=== PATIENT | female | born 1930 | race Caucasian/White ===

== ENCOUNTER 2016-12-11 14:58 | Outpatient (CLI) | payer OTHER | END 2016-12-11 15:00 | LOC: LAB 14:58 | PROVIDERS: ATTEND Family Medicine | DX: Z79.01 Long term (current) use of anticoagulants (principal) | CPT/HCPCS: 36415; 85610 ==

== ENCOUNTER 2016-12-28 11:13 | Outpatient (CLI) | payer OTHER | END 2016-12-28 11:14 | LOC: LAB 11:13 | PROVIDERS: ATTEND Family Medicine | DX: Z51.81 Encounter for therapeutic drug level monitoring (principal) | CPT/HCPCS: 85610 ==

== ENCOUNTER 2017-01-28 14:22 | Outpatient (CLI) | payer OTHER ==
[2017-01-28 15:29] LABS: eGFR (African) > 60; eGFR (Non-African) 41
== END 2017-01-28 14:23 ==
LOC: LAB 14:22
PROVIDERS: ATTEND Family Medicine
DX: E11.9 Type 2 diabetes mellitus without complications (principal)
CPT/HCPCS: 36415; 80053; 80061; 83036

== ENCOUNTER 2017-03-18 15:58 | Outpatient (CLI) | payer OTHER | END 2017-03-18 16:00 | LOC: LAB 15:58 | PROVIDERS: ATTEND Family Medicine | DX: Z51.81 Encounter for therapeutic drug level monitoring (principal) | CPT/HCPCS: 36415; 85610 ==

== ENCOUNTER 2017-04-02 13:39 | Outpatient (CLI) | payer OTHER ==
[2017-04-03 10:28] VITALS: BP 115/88
== END 2017-04-02 13:40 ==
LOC: LAB 13:39
PROVIDERS: ATTEND Family Medicine
DX: Z51.81 Encounter for therapeutic drug level monitoring (principal)
CPT/HCPCS: 36415; 85610

== ENCOUNTER 2017-04-03 10:10 | Emergency (ER) | payer OTHER ==
[2017-04-03 10:28] VITALS: BP 115/88
--- NOTE | 2017-04-03 11:09 | ED Physician Documentation ---
General Adult - HISTORIAN Historian: spouse - HPI Stated Complaint: Head Lac Chief Complaint: Laceration/Recheck/Suture Onset: hours (5) Timing: still present Severity: moderate Last known Well Date: 04/03/17 Last Known Well Time: 05:00 - ROS CONST: no problems EYES/ENT: none CVS/RESP: none GI/: none MS/SKIN/LYMPH: none NEURO/PSYCH: other (dementia) - PAST HX Past History: A-Fib Other History: other (Dementia) Surgeries/Procedures: other (porcine valve placement) Allergies/Adverse Reactions: Allergies Allergy/AdvReac Type Severity Reaction Status Date / Time No Known Drug Allergies Allergy Verified 04/03/17 10:22 - SOCIAL HX Smoking History: non-smoker - FAMILY HX Family History: Yes - VITAL SIGNS Vital Signs: Vital Signs Temp Pulse Resp BP Pulse Ox 97.2 F L 67 19 115/88 93 04/03/17 10:12 04/03/17 10:12 04/03/17 10:12 04/03/17 10:12 04/03/17 10:12 - REVIEWED ASSESSMENTS Nursing Assessment Reviewed: Yes Vitals Reviewed: Yes Procedures Wound Location: head Wound's Depth, Shape: superficial, linear Wound Explored: no foreign body removed Betadine Prep?: Yes Anesthesia: Lidocaine w/ Epi Wound Debrided: minimal Wound Repaired With: sutures Suture Size/Type: 5:0, nylon Number of Sutures: 8 Layer Closure?: No Sterile Dressing Applied?: Yes General Adult Physical Exam - PHYSICAL EXAM GENERAL APPEARANCE: mild distress EENT: eye inspection normal, other (curvilinear laceration of the left forehead is noted with concavity to the patient's right and a cental linear laceration radiation from the central convexity) RESPIRATORY: no resp distress CVS: irregularly irregular rhy, other (click) ABDOMEN: soft, no organomegaly RECTAL: other BACK: normal inspection SKIN: other (laceration as above) EXTREMITIES: non-tender NEURO: disoriented Discharge Clincal Impression: Forehead laceration Referrals: Keri Sosa MD [Primary Care Provider] - 2 Days Disposition: 01 HOME, SELF-CARE Decision to Admit: NO Decision Time: 11:15
[2017-04-03] MEDS: LIDOCAINE 1%/EPINEPHRINE 20ML VIAL IJ ONE (11:20)
== END 2017-04-03 11:20 | disposition home or self-care (01) ==
LOC: ED 10:10
DX: S01.81XA Laceration without foreign body of other part of head, initial encounter (principal); W19.XXXA Unspecified fall, initial encounter; Y93.9 Activity, unspecified; Y92.9 Unspecified place or not applicable
CPT/HCPCS: 12002; 99283

== ENCOUNTER 2017-04-15 09:38 | Outpatient (CLI) | payer OTHER ==
[2017-04-15 11:09] LABS: eGFR (African) > 60; eGFR (Non-African) 41
--- NOTE | 2017-04-15 12:54 | Diagnostic Imaging Report ---
ARGELIA CHAIREZ [facility] [address] [facility] [address] [place] [address]. [id number] Report Submission Date: Apr 15, 2017 12:38:14 PM NET SOFTWARE ENGINEER Patient Study Name: MICHAELLE NOEL Date: Apr 15, 2017 11:26:14 AM NET SOFTWARE ENGINEER Modality Type: CT\SR Gender: F Description: CT ABD & PELVIS W/ CON : 34 Institution: [facility] Physician: ARGELIA CHAIREZ Examination: CT Abdomen/pelvis History: Generalized abdominal discomfort Comparison exams: None available Technique: CT Abdomen/pelvis with IV protocol. Findings: Liver demonstrates diffuse low attenuation. No central lesion. Spleen , adrenals, pancreas, kidneys and gallbladder are without gross irregularity. No abnormal enhancement. No gallstone. Renal cortical atrophy/scarring. No suspicious calcifications. Ureters are nondilated in their course through the abdomen and pelvis. No central calcification. Pelvic phleboliths. Bladder margin within normal limits. Abdominal aorta demonstrates tortuosity and peripheral atherosclerotic disease. No aneurysm. Cardiac silhouette upper limits normal. Bowel unopacified limiting evaluation. No abnormal dilation. Stool within the large bowel limiting sensitivity. No mesenteric inflammatory changes or free fluid. Appendix not visualized. Sigmoid diverticula. No adjacent inflammation. Large hiatal hernia - portions of the stomach extend into the hernia. Osseous structures demonstrates curvature and degenerative changes. Lung bases with parenchymal scarring. Mild lingular haziness. No effusion. Impression: No abdominal mass or acute inflammatory process. Moderate large bowel stool. No obstruction. Sigmoid diverticulosis. No evidence for acute diverticulitis. Large hiatal hernia - portion of the stomach extends into the hernia. No gallstone. Renal cortical atrophy. No cortical calcification or abnormal ureteric dilation. Lung base scarring and possible mild lingular infiltrate. No effusion. Electronically signed on Apr 15, 2017 12:38:14 PM NET SOFTWARE ENGINEER by: Tano DAVIS
== END 2017-04-15 09:40 ==
LOC: RAD 09:38
PROVIDERS: ATTEND Internal Medicine Cardiovascular Disease
DX: I10 Essential (primary) hypertension (principal); I71.4 Abdominal aortic aneurysm, without rupture
CPT/HCPCS: 74177; 82565; Q9967

== ENCOUNTER 2017-05-01 14:19 | Outpatient (CLI) | payer OTHER | END 2017-05-01 14:20 | LOC: LAB 14:19 | PROVIDERS: ATTEND Family Medicine | DX: Z51.81 Encounter for therapeutic drug level monitoring (principal) | CPT/HCPCS: 36415; 85610 ==

== ENCOUNTER 2017-05-08 15:32 | Outpatient (CLI) | payer OTHER | END 2017-05-08 15:33 | LOC: LAB 15:32 | PROVIDERS: ATTEND Family Medicine | DX: Z51.81 Encounter for therapeutic drug level monitoring (principal) | CPT/HCPCS: 36415; 85610 ==

== ENCOUNTER 2017-05-15 10:43 | Outpatient (CLI) | payer OTHER | END 2017-05-15 10:44 | LOC: LAB 10:43 | PROVIDERS: ATTEND Family Medicine | DX: Z51.81 Encounter for therapeutic drug level monitoring (principal) | CPT/HCPCS: 36415; 85610 ==

== ENCOUNTER 2017-05-22 15:03 | Outpatient (CLI) | payer OTHER | END 2017-05-22 15:04 | LOC: LAB 15:03 | PROVIDERS: ATTEND Family Medicine | DX: Z51.81 Encounter for therapeutic drug level monitoring (principal) | CPT/HCPCS: 36415; 85610 ==

== ENCOUNTER 2017-05-28 15:30 | Outpatient (CLI) | payer OTHER | END 2017-05-28 15:32 | LOC: LAB 15:30 | PROVIDERS: ATTEND Family Medicine | DX: Z51.81 Encounter for therapeutic drug level monitoring (principal) | CPT/HCPCS: 36415; 85610 ==

== ENCOUNTER 2017-06-09 15:27 | Outpatient (CLI) | payer OTHER | END 2017-06-09 15:30 | LOC: LAB 15:27 | PROVIDERS: ATTEND Family Medicine | DX: Z79.899 Other long term (current) drug therapy (principal) | CPT/HCPCS: 36415; 85610 ==

== ENCOUNTER 2017-06-23 10:55 | Outpatient (CLI) | payer OTHER | END 2017-06-23 13:28 | LOC: LAB 10:55 | PROVIDERS: ATTEND Family Medicine | DX: Z51.81 Encounter for therapeutic drug level monitoring (principal) | CPT/HCPCS: 36415; 85610 ==

== ENCOUNTER 2017-07-07 15:23 | Outpatient (CLI) | payer OTHER | END 2017-07-07 15:24 | LOC: LAB 15:23 | PROVIDERS: ATTEND Family Medicine | DX: Z51.81 Encounter for therapeutic drug level monitoring (principal) | CPT/HCPCS: 36415; 85610 ==

== ENCOUNTER 2017-08-07 12:25 | Outpatient (CLI) | payer OTHER | END 2017-08-07 12:26 | LOC: LAB 12:25 | PROVIDERS: ATTEND Family Medicine | DX: Z51.81 Encounter for therapeutic drug level monitoring (principal); E11.9 Type 2 diabetes mellitus without complications | CPT/HCPCS: 36415; 83036; 85610 ==

== ENCOUNTER 2017-11-14 09:59 | Inpatient (IN) | payer OTHER ==
--- NOTE | 2017-11-14 10:13 | ED Physician Documentation ---
General Adult - HISTORIAN Historian: patient, spouse - HPI Stated Complaint: possible dehydration Chief Complaint: Weakness Onset: days ago (5) Timing: still present Severity: moderate Further Comments: yes (she reports Friday she started to have nausea and she has had no vomiting. She denies a fever. She states she has a history of Afib. She has some diarrhea (she is not certain how much she has had today). No rash. No swelling. Dr Narvaez did call and state she needs eval for possible admission with dehydration.) Last known Well Code/Unknown Code: Unknown - ROS CONST: recent illness EYES/ENT: nasal drainage, nasal congestion CVS/RESP: denies: chest pain, shortness of breath, cough GI/: nausea, diarrhea. denies: abdominal pain, problems urinating, vomiting MS/SKIN/LYMPH: denies: rash NEURO/PSYCH: denies: headache, dizziness - PAST HX Past History: A-Fib Immunizations: UTD Allergies/Adverse Reactions: Allergies Allergy/AdvReac Type Severity Reaction Status Date / Time No Known Drug Allergies Allergy Verified 11/14/17 10:32 - SOCIAL HX Smoking History: non-smoker Alcohol Use: none Drug Use: none - FAMILY HX Family History: No - VITAL SIGNS Vital Signs: Vital Signs Temp Pulse Resp BP Pulse Ox 115/88 04/03/17 11:20 - REVIEWED ASSESSMENTS Nursing Assessment Reviewed: Yes Vitals Reviewed: Yes Progress - Progress Progress: 1145: call into Dr Narvaez for possible admission. Pt resting quietly DG ED Results Lab/Radiology - Radiology Radiology Impressions: Examination: Portable chest History: Evaluate lungs. PCXR, FATIGUE, SOA WORSE TODAY THAN USUAL (Hx) Comparison exam: None provided. Findings: Single view of the chest demonstrates a prominent cardiac and mediastinal silhouette. Sternotomy wires. Lung burrows without focal infiltrate. No blunting of the costophrenic margins. Possible hiatal hernia. Acromioclavicular joint degenerative changes. Impression: Cardiomegaly. No gross pulmonary consolidation/effusion. Electronically signed on Nov 14, 2017 11:06:51 AM CDT by: Tano Tubbs General Adult Physical Exam - PHYSICAL EXAM GENERAL APPEARANCE: no distress EENT: eye inspection normal, ENT inspection normal, other (signs of dehydration ) NECK: normal inspection RESPIRATORY: no resp distress, chest non-tender, breath sounds normal CVS: irregularly irregular rhy ABDOMEN: soft, normal bowel sounds, no distension, non-tender BACK: normal inspection, no CVA tenderness SKIN: warm/dry, normal color EXTREMITIES: non-tender, normal range of motion, no evidence of injury, no edema NEURO: oriented X3, CN's nml as tested, motor nml, sensation nml, mood/affect nml, cognition normal Discharge Clincal Impression: Dehydration UTI (urinary tract infection) Qualifiers: Urinary tract infection type: site unspecified Hematuria presence: without hematuria Qualified Code(s): N39.0 - Urinary tract infection, site not specified A-fib Qualifiers: Atrial fibrillation type: chronic Qualified Code(s): I48.2 - Chronic atrial fibrillation Comments: 1245: Discussed with DR Narvaez will admit in DG Disposition: 09 ADMITTED INPATIENT Decision to Admit: [id number] Date of Decison to Admit: 11/14/17 Decision Time: 12:45
[2017-11-14] MEDS ORDERED: 0.9 % SODIUM CHLORIDE 1,000 ML IV SCH (10:30)
[2017-11-14] MEDS ORDERED: ONDANSETRON HCL/PF 4 MG/ 2ML VIAL IVP ONE ×2 (10:32→17:59)
[2017-11-14 10:37] LABS: BASOPHILS % 0.7 (0.0-1.5); EOSINOPHILS % 4.9 % (0.0-6.8); MEAN CORPUSCULAR VOLUME 101.9 fl (80.0-100.0); NEUTROPHILS # 5.8 # k/uL (1.4-7.7)
[2017-11-14 10:53] LABS: eGFR (African) > 60; eGFR (Non-African) > 60
[2017-11-14 13:49] VITALS: BMI 42.0
[2017-11-14 15:15] LABS: APPEARANCE,URINE CLEAR (CLEAR); COLOR,URINE YELLOW (YELLOW); OCCULT BLOOD,URINE TRACE-INTACT (NEGATIVE); PH URINE 5.5 (5.0 - 8.0); UROBILINOGEN URINE 0.2 Eu (0.2-1.0)
[2017-11-14] MEDS ORDERED: LOSARTAN POTASSIUM 100 MG PO SCH (17:53)
[2017-11-14] MEDS ORDERED: VENLAFAXINE HCL 37.5 MG CAP.ER.24H PO SCH (17:53)
[2017-11-14] MEDS ORDERED: WARFARIN SODIUM 5 MG TABLET PO SCH (17:53)
[2017-11-14] MEDS ORDERED: VENLAFAXINE HCL 75 MG PO SCH (17:53)
[2017-11-14] MEDS ORDERED: WARFARIN SODIUM 2.5 MG TABLET PO SCH (18:00)
--- NOTE | 2017-11-14 18:03 | History and Physical Report ---
History of Present Illnes - History of Present Illness Reason for Visit: him History of Present Illness: Patient is and 87-year-old white female with vied a history of nausea. Patient stated she is vomited the time. Has not had any hematemesis. Last emesis was approximately 18 hours ago. Patient feels that she is getting dehydrated. Patient stated she is had increase urinary output and her mouth seemed to be drive. Patient denies any orthostatic symptoms at this time. Patient was seen in the office and transferred to the ED for further evaluation. In the ED it was noted that the patient BUN and creatinine were elevated. Patient was felt to have a urinary tract infection. Patient states she has been having some urinary urgency. Patient not sure if she is had any fever or chills. Patient was subsequently admitted to the hospital for further care and evaluation. - Past Medical History Cardiac: AFIB, HTN, Hyperlipidemia (Hope okay well I think we may have been on the), Aortic stenosis (overload overload), Other (thoracic aneurysm, aortic regurgitation, ) Pulmonary: Sleep Apnea, Other (allergic rhinitis) VASCULAR NEUROLOGIST: Dementia Psych: Depression Endocrine: Diabetes (type 2) - Past Surgical History Past Surgical History: Cholecystectomy, Cataract Removal, Hysterectomy, Other ( AV porcine valve, BSO) - Past Family History Mother Family History: (94yo advanced age) Father Family History: Cancer (colon) - Past Social History Smoke: No Occupation: retire Alcohol: None Drugs: None Lives: With Family Domestic Violence: Negative - Health Maintenance Health Maintenance: Influenza Vaccine, Pneumococcal Vaccine Influenza Vaccine: Current for this Influenza Season Pneumonia Vaccine: Yes Resuscitation Status: Resusciation Status Resuscitation Status Full Code - Unable to Obtain History Unable to Obtain: No Review of Systems - Review of Systems Constitutional: Chills, Weakness. negative: Fever Eyes: negative: pain, vision change ENT: negative: Ear Pain, Ear Discharge, Nose Pain, Nose Discharge, Nose Congestion, Mouth Pain, Throat Swelling Respiratory: negative: Cough, Shortness of Breath, Hemoptysis, SOB with Excertion, Pleuritic Pain, Wheezing Cardiovascular: Palpitations. negative: Chest Pain, Orthopnea, Paroxysmal Noc. Dyspnea, Edema, Light Headedness Gastrointestinal: Nausea, Vomiting, Abdominal Pain, Diarrhea. negative: Constipation, Melena, Hematochezia Genitourinary: negative: Dysuria, Frequency Musculoskeletal: Back Pain Skin: negative: Rash Neurological: Weakness. negative: Numbness, Incoordination, Change in Speech, Confusion, Seizures - Medications/Allergies Allergies/Adverse Reactions: Allergies Allergy/AdvReac Type Severity Reaction Status Date / Time No Known Drug Allergies Allergy Verified 11/14/17 10:32 Current Inpatient Medications: Current Inpatient Medications Cholecalciferol (Vitamin D-3) 2,000 unit PO DAILY [facility] Sodium Chloride (Normal Saline) 1,000 mls @ 100 mls/hr IV Q10H [facility] Ceftriaxone Sodium 1 gm/ (Sodium Chloride) 50 mls @ 100 mls/hr IV Q24H [facility] Losartan Potassium (Cozaar) 100 mg PO DAILY [facility] Ondansetron HCl (Zofran 4 Mg/2 Ml) 4 mg IVP NOW ONE Stop: 11/14/17 18:00 Pantoprazole Sodium (Protonix) 40 mg PO 0700 [facility] Pravastatin Sodium (Pravastatin Sodium) 10 mg PO HS [facility] Venlafaxine HCl (Effexor Xr) 112.5 mg PO DAILY [facility] Warfarin Sodium (Coumadin) 7.5 mg PO [id number] [facility] Exam - Exam Vital Signs: Vital Signs (72 hours) 11/14/17 11/14/17 12:54 13:00 Temperature 97.9 F Pulse Rate [ 91 H 104 H Pulse ox] Respiratory 16 17 Rate Blood Pressure 130/72 92/76 [Left Arm] O2 Sat by Pulse 97 94 Oximetry General: Alert, Oriented to Person, Oriented to Place, Oriented to Time, Cooperative, Mild distress HEENT: Atraumatic, PERRLA, EOMI, Mouth Mucous membr. moist/[place], Nose Mucous membr. moist/[place] Neck: Normal Range of Motion. No: Rigidity, Lymphadenopathy Carotids: wnl Thyroid: WNL Lungs: Clear to auscultation, Normal air movement, Speaks full Sentences Cardiovascular: Normal S1, Normal S2, Murmur, Irregularly Irregular, Atrial Fib , Other (click) Murmur: Systolic Murmur Heart Murmur Grade: II Abdomen: Normal bowel sounds, Soft, No hepatospenomegaly, No masses, Other ( tenderness ot the epigastric area) Integumentary: Normal, [place], Warm, Dry Extremities: No clubbing, No cyanosis, No edema, Normal pulses, No tenderness/ swelling Neurological: Normal speech, Strength Equal Bilat, Normal tone, Sensation intact , Cranial nerves 3-12 NL, Reflexes 2+. No: Normal gait (slightly ataxic) Psych/Mental Status: Mental status NL, Mood NL, Appropriate Affect, Intact Judgment - Laboratory Results Laboratory Results: Laboratory Results 11/14/17 11/14/17 11/14/17 12:45 Unknown Unknown PT 18.6 H INR 1.76 H NT-Pro-B Natriuret Pep 1659.5 H Urine Color Yellow Urine Appearance Clear Urine pH 5.5 Ur Specific [place] 1.025 Urine Protein Negative Urine Ketones Trace H Urine Occult Blood Trace-intact H Urine Nitrite Positive H Urine Bilirubin Negative Urine Urobilinogen 0.2 Ur Leukocyte Esterase 1+ H Urine Glucose Negative Assessment/Plan - Assessment/Plan (1) UTI (urinary tract infection) Status: Acute Current Visit: Yes Qualifiers: Urinary tract infection type: site unspecified Hematuria presence: without hematuria Qualified Code(s): N39.0 - Urinary tract infection, site not specified Assessment: Blood cultures have been started. Your culture has been obtained. Patient will be started on Rocephin 1 g IV Q 24 hours. Once patient is able to tolerated oral medications will transition to oral antibiotics. (2) Nausea & vomiting Status: Acute Current Visit: Yes Assessment: Patient will be placed on Zofran PRN for nausea. Patient will be started on the proton pump inhibitor for possible gastritis. (3) Diabetes type 2, controlled Status: Acute Current Visit: Yes Qualifiers: Diabetes mellitus penitentiary insulin use: with termite control service representative use Assessment: Patient will be continued on home insulin therapy. (4) A-fib Status: Chronic Current Visit: Yes Qualifiers: Atrial fibrillation type: chronic Qualified Code(s): I48.2 - Chronic atrial fibrillation Assessment: Will continue with anticoagulation therapy with Coumadin. Patient heart rate will be monitored. Patient does have a rapid ventricular response at this time. Patient will be started on metoprolol 25 mg BID to try to control the rate better. (5) Dehydration Status: Acute Current Visit: Yes Assessment: Patient will be started on normal saline with slow rehydration. Will continue to monitor patient kidney functions. VTE Assessment - RISK FACTOR SCORE VTE RISK FACTOR SCORES: AGE OVER 60 YEARS, ANTICIPATED BED CONFINEMENT OR IMMOBILIZATION > 24 HOURS - RISK VTE MODERATE RISK: SCORE OF 2 (RISK PROXIMAL DVT 2-4%) PROPHYAXIS NEEDED (on coumadin)
[2017-11-14] MEDS ORDERED: WARFARIN SODIUM 5 MG TABLET PO ONE (18:04)
[2017-11-14] MEDS: 0.9 % SODIUM CHLORIDE 1,000 ML IV SCH (18:09)
[2017-11-14] MEDS ORDERED: cefTRIAXone SODIUM 1 GM VIAL ONE (18:18)
[2017-11-14] MEDS: cefTRIAXone SODIUM 1 GM in 0.9 % SODIUM CHLORIDE 50 ML IV SCH (18:21)
[2017-11-14] MEDS ORDERED: PRAVASTATIN SODIUM 20 MG TABLET ONE (18:26)
[2017-11-14] MEDS: PANTOPRAZOLE SODIUM 40 MG TABLET PO SCH (18:30)
[2017-11-14] MEDS: PRAVASTATIN SODIUM 20 MG TABLET PO SCH ×2 (18:30→21:15)
--- NOTE | 2017-11-14 18:31 | Diagnostic Imaging Report ---
BRUCE SMITH [facility] [address] [facility] [address] [place], [place]. [address] Report Submission Date: Nov 14, 2017 11:06:51 AM CDT Patient Study Name: MICHAELLE NOEL Date: Nov 14, 2017 10:34:59 AM CDT Modality Type: DX Gender: F Description: CHEST : 32 Institution: [facility] Physician: BRUCE SMITH Examination: Portable chest History: Evaluate lungs. PCXR, FATIGUE, SOA WORSE TODAY THAN USUAL (Hx) Comparison exam: None provided. Findings: Single view of the chest demonstrates a prominent cardiac and mediastinal silhouette. Sternotomy wires. Lung burrows without focal infiltrate. No blunting of the costophrenic margins. Possible hiatal hernia. Acromioclavicular joint degenerative changes. Impression: Cardiomegaly. No gross pulmonary consolidation/effusion. Electronically signed on Nov 14, 2017 11:06:51 AM CDT by: Tano DAVIS
[2017-11-14] MEDS ORDERED: Non-Formulary 1 EACH (Ranitidine Hcl [Ranitidine Hcl] 150 MG) PO SCH (21:00)
[2017-11-14] MEDS: ZOLPIDEM TARTRATE 5 MG TABLET PO PRN (21:08)
[2017-11-14] MEDS: METOPROLOL TARTRATE 50 MG TABLET PO SCH (21:09)
[2017-11-14] MEDS: INSULIN NPH/REG 100 UNIT/ML 3ML VIAL SQ SCH (21:11)
[2017-11-15] MEDS: 0.9 % SODIUM CHLORIDE 1,000 ML IV SCH ×3 (05:59→14:54)
[2017-11-15] MEDS: PANTOPRAZOLE SODIUM 40 MG TABLET PO SCH (06:00)
[2017-11-15 07:10] LABS: BASOPHILS % 0.9 (0.0-1.5); EOSINOPHILS % 6.9 % (0.0-6.8); MEAN CORPUSCULAR HEMOGLOBIN 31.7 pg (28.0-34.0); MEAN CORPUSCULAR VOLUME 101.9 fl (80.0-100.0); NEUTROPHILS # 4.7 # k/uL (1.4-7.7)
[2017-11-15 07:25] LABS: eGFR (African) > 60; eGFR (Non-African) 41
[2017-11-15] MEDS ORDERED: PRAVASTATIN SODIUM 10 MG PO SCH (09:00)
[2017-11-15] MEDS: LOSARTAN POTASSIUM 50 MG TABLET PO SCH (09:18)
[2017-11-15] MEDS: INSULIN NPH/REG 100 UNIT/ML 3ML VIAL SQ SCH ×2 (09:18→20:22)
[2017-11-15] MEDS: CHOLECALCIFEROL (VIT D3) 1,000 UNIT TABLET PO SCH (09:18)
[2017-11-15] MEDS: VENLAFAXINE HCL 37.5 MG CAP.ER.24H PO SCH (09:18)
[2017-11-15] MEDS: METOPROLOL TARTRATE 50 MG TABLET PO SCH ×2 (09:18→20:20)
[2017-11-15] MEDS ORDERED: WARFARIN SODIUM 5 MG TABLET PO ONE (11:06)
[2017-11-15] MEDS ORDERED: PRAVASTATIN SODIUM 20 MG TABLET ONE (11:06)
--- NOTE | 2017-11-15 11:27 | Inpatient Progress Note ---
Subjective - Required Recertification Statement I anticipate X number of days because-include discharge plan: 1 - Review of Systems Subjective: Patient feeling a little better. No nausea or vomiting. HR this am has been in the 80's. Appetite better. Objective - Exam Vitals and I&O: Vital Signs Temp 97.4 F L 11/15/17 09:33 Pulse 76 11/15/17 09:33 Resp 22 11/15/17 09:33 BP 125/48 11/15/17 09:33 Pulse Ox 93 11/15/17 09:33 Intake & Output 11/14/17 11/14/17 11/15/17 11:59 23:59 11:59 Intake Total 1461 1560 Balance 1461 1560 Weight 97.522 kg 98.43 kg Intake: IV 521 1340 Right Antecubital 521 1340 Oral 940 220 Other: Voiding Method Incontinent Bedside Commode # Voids 1 3 General: Alert, Oriented to Person, Oriented to Place, Cooperative, No acute distress. No: Oriented to Time Lungs: Clear to auscultation, Normal air movement, Speaks full Sentences Cardiovascular: Regular rate - Results Results: Laboratory Results WBC 7.20 K/ul (4.00-12.00) 11/14/17 Unknown RBC 3.87 M/ul (3.90-5.20) L 11/14/17 Unknown Hgb 12.3 g/dL (12.0-16.0) 11/14/17 Unknown Hct 39.5 % (34.5-46.5) 11/14/17 Unknown MCV 101.9 fl (80.0-100.0) H 11/14/17 Unknown MCH 31.7 pg (28.0-34.0) 11/14/17 Unknown MCHC 31.1 g/dL (30.0-36.0) 11/14/17 Unknown RDW 13.6 % (11.3-14.3) 11/14/17 Unknown Plt Count 301 K/mm3 (130-400) 11/14/17 Unknown Neut % (Auto) 65.9 % (39.0-79.0) 11/14/17 Unknown Lymph % (Auto) 18.7 % (16.0-50.0) 11/14/17 Unknown Rains % (Auto) 6.0 % (0.0-11.0) 11/14/17 Unknown Eos % (Auto) 6.9 % (0.0-6.8) H 11/14/17 Unknown Baso % (Auto) 0.9 (0.0-1.5) 11/14/17 Unknown Neut # (Auto) 4.7 # k/uL (1.4-7.7) 11/14/17 Unknown Lymph # (Auto) 1.3 # k/uL (0.6-4.0) 11/14/17 Unknown Rains # (Auto) 0.4 # k/uL (0.0-0.9) 11/14/17 Unknown Eos # (Auto) 0.5 # k/uL (0.0-0.6) 11/14/17 Unknown Baso # (Auto) 0.1 # k/uL (0.0-0.5) 11/14/17 Unknown Reactive Lymphs % 1.5 % (0.0-5.0) 11/14/17 Unknown Reactive Lymphs # 0.1 # k/uL (0.0-0.8) 11/14/17 Unknown PT 18.5 Seconds (9.4-11.6) H 11/15/17 06:00 INR 1.75 (0.9-1.2) H 11/15/17 06:00 Sodium 143 mmol/L (136-145) 11/15/17 06:00 Potassium 4.5 mmol/L (3.5-5.1) 11/15/17 06:00 Chloride 110 mmol/L (98-107) H 11/15/17 06:00 Carbon Dioxide 26 mmol/L (22-30) 11/15/17 06:00 BUN 24 mg/dL (7-17) H 11/15/17 06:00 Creatinine 1.30 mg/dL (0.52-1.04) H 11/15/17 06:00 Estimated Creat Clear 57 11/15/17 06:00 Est GFR ( Amer) > 60 (60-) 11/15/17 06:00 Est GFR (Non-Af Amer) 41 (60-) L 11/15/17 06:00 Glucose 96 mg/dL (74-106) 11/15/17 06:00 Calcium 9.4 mg/dL (8.4-10.2) 11/15/17 06:00 Total Bilirubin 0.3 mg/dL (0.2-1.3) 11/15/17 06:00 AST 17 U/L (15-46) 11/15/17 06:00 ALT 22 U/L (13-69) 11/15/17 06:00 Alkaline Phosphatase 53 U/L (38-126) 11/15/17 06:00 NT-Pro-B Natriuret Pep 1659.5 pg/mL (15.0-450.0) H 11/14/17 Unknown Total Protein 6.6 g/dL (6.3-8.2) 11/15/17 06:00 Albumin 3.6 g/dL (3.5-5.0) 11/15/17 06:00 Urine Color Yellow (YELLOW) 11/14/17 12:45 Urine Appearance Clear (CLEAR) 11/14/17 12:45 Urine pH 5.5 (5.0 - 8.0) 11/14/17 12:45 Ur Specific [place] 1.025 (1.010-1.030) 11/14/17 12:45 Urine Protein Negative mg/dL (NEGATIVE) 11/14/17 12:45 Urine Ketones Trace mg/dL (NEGATIVE) H 11/14/17 12:45 Urine Occult Blood Trace-intact (NEGATIVE) H 11/14/17 12:45 Urine Nitrite Positive (NEGATIVE) H 11/14/17 12:45 Urine Bilirubin Negative (NEGATIVE) 11/14/17 12:45 Urine Urobilinogen 0.2 Eu (0.2-1.0) 11/14/17 12:45 Ur Leukocyte Esterase 1+ (NEGATIVE) H 11/14/17 12:45 Urine Glucose Negative mg/dL (NEGATIVE) 11/14/17 12:45 Assessment/Plan - Assessment/Plan (1) Diabetes type 2, controlled Status: Acute Current Visit: Yes Qualifiers: Diabetes mellitus keno terminal operator insulin use: with jail use Diabetes mellitus complication status: without complication Qualified Code(s): E11.9 - Type 2 diabetes mellitus without complications; Z79.4 - skilled nursing (current) use of insulin; Z79.4 - skilled nursing (current) use of insulin; Z79.4 - skilled nursing ( current) use of insulin; Z79.4 - keno terminal operator (current) use of insulin Plan: BS 104 and 108. reports never that low at home. Will cut insulin to the 18 units bid he gives at home. Watch. (2) Nausea & vomiting Status: Acute Current Visit: Yes Qualifiers: Vomiting type: unspecified Vomiting Intractability: non-intractable Qualified Code(s): R11.2 - Nausea with vomiting, unspecified Plan: Improved. Watch closely. IF tolerated po today will change po antibiotics. (3) UTI (urinary tract infection) Status: Acute Current Visit: Yes Qualifiers: Urinary tract infection type: site unspecified Hematuria presence: without hematuria Qualified Code(s): N39.0 - Urinary tract infection, site not specified Plan: Awaiting urine culture. Continue rocephin. Change to po when tolerating diet. Decrease IVF rate. (4) A-fib Status: Chronic Current Visit: Yes Qualifiers: Atrial fibrillation type: chronic Qualified Code(s): I48.2 - Chronic atrial fibrillation Plan: HR better controlled on metoprolol. BP stable. Continue to watch.
[2017-11-15] MEDS ORDERED: cefTRIAXone SODIUM 1 GM VIAL ONE (17:46)
[2017-11-15] MEDS: cefTRIAXone SODIUM 1 GM in 0.9 % SODIUM CHLORIDE 50 ML IV SCH (17:54)
[2017-11-15] MEDS ORDERED: WARFARIN SODIUM 2.5 MG TABLET PO SCH (18:00)
[2017-11-15] MEDS ORDERED: 0.9 % SODIUM CHLORIDE 1,000 ML IV ONE (19:24)
[2017-11-15] MEDS: PRAVASTATIN SODIUM 20 MG TABLET PO SCH (20:20)
[2017-11-16] MEDS: 0.9 % SODIUM CHLORIDE 1,000 ML IV SCH ×2 (00:04→08:58)
[2017-11-16] MEDS: PANTOPRAZOLE SODIUM 40 MG TABLET PO SCH (06:01)
[2017-11-16 07:12] LABS: MEAN CORPUSCULAR HEMOGLOBIN 32.3 pg (28.0-34.0); MEAN CORPUSCULAR VOLUME 99.9 fl (80.0-100.0)
[2017-11-16 07:28] LABS: eGFR (African) > 60; eGFR (Non-African) > 60
[2017-11-16] MEDS ORDERED: 0.9 % SODIUM CHLORIDE 1,000 ML IV ONE (08:31)
[2017-11-16] MEDS: LOSARTAN POTASSIUM 50 MG TABLET PO SCH (08:57)
[2017-11-16] MEDS: VENLAFAXINE HCL 37.5 MG CAP.ER.24H PO SCH (08:57)
[2017-11-16] MEDS: METOPROLOL TARTRATE 50 MG TABLET PO SCH ×2 (08:57→20:25)
[2017-11-16] MEDS: CHOLECALCIFEROL (VIT D3) 1,000 UNIT TABLET PO SCH (08:58)
[2017-11-16] MEDS: INSULIN NPH/REG 100 UNIT/ML 3ML VIAL SQ SCH ×2 (09:31→20:29)
[2017-11-16] MEDS ORDERED: PRAVASTATIN SODIUM 20 MG TABLET ONE (11:06)
[2017-11-16] MEDS ORDERED: cefTRIAXone SODIUM 1 GM VIAL ONE (11:07)
[2017-11-16] MEDS ORDERED: FUROSEMIDE 20 MG/2 ML VIAL IVP ONE (11:10)
[2017-11-16] MEDS: cefTRIAXone SODIUM 1 GM in 0.9 % SODIUM CHLORIDE 50 ML IV SCH (17:55)
[2017-11-16] MEDS: ZOLPIDEM TARTRATE 5 MG TABLET PO PRN (20:25)
[2017-11-16] MEDS: PRAVASTATIN SODIUM 20 MG TABLET PO SCH (20:26)
[2017-11-17] MEDS: PANTOPRAZOLE SODIUM 40 MG TABLET PO SCH (06:05)
--- NOTE | 2017-11-17 07:54 | Discharge Summary ---
Discharge Summary - Discharge Sumary History of Present Illness: Patient is and 87-year-old white female with vied a history of nausea. Patient stated she is vomited the time. Has not had any hematemesis. Last emesis was approximately 18 hours ago. Patient feels that she is getting dehydrated. Patient stated she is had increase urinary output and her mouth seemed to be drive. Patient denies any orthostatic symptoms at this time. Patient was seen in the office and transferred to the ED for further evaluation. In the ED it was noted that the patient BUN and creatinine were elevated. Patient was felt to have a urinary tract infection. Patient states she has been having some urinary urgency. Patient not sure if she is had any fever or chills. Patient was subsequently admitted to the hospital for further care and evaluation. Home Medications: Ambulatory Orders Medication Instructions Recorded Metoprolol Tartrate [Lopressor] 25 mg PO BID #60 tablet 11/17/17 Sulfamethoxazole/Trimethoprim 1 each PO BID #8 tab 11/17/17 [Bactrim Ds] Allergies/Adverse Reactions: Allergies Allergy/AdvReac Type Severity Reaction Status Date / Time No Known Drug Allergies Allergy Verified 11/14/17 10:32 Discharge Summary: Patient was admitted with UTI and treated with rocephin. She responded well to IVF and antibiotics. N/V resolved. Antibiotics were changed when urine culture came back. She will complete a 7 day course with bactrim. Will watch INR very closely. HR controlled with metoprolol tartrate 25 mg bid. BP stable. BS were around 100 so insulin decreased. AT home she had been in the 200 range - consistent with her feeding her whatever she wanted. It was noted she gained about 10 pounds while on IVF but did not feel she was SOB more than usual. She was given IV lasix, but did not notice a change in weight. I suspect she was at a very dry weight due to dehydration when she was admitted. She was able to ambulate in the zafar "as much as she does at home" per . He refused SNF evaluation. He also refused home health as they "have a date at the [facility]" and doesn't want to be homebound. He will watch her carefully - may need outpatient PT. He is to get her protime drawn in 2 days. Hospital Course: Discharge Dx: UTI. Afib with RVR. DM. Dementia. Disposition - home with .
--- NOTE | 2017-11-17 07:54 | Inpatient Progress Note ---
Subjective - Required Recertification Statement I anticipate X number of days because-include discharge plan: 7 - Review of Systems Subjective: THIS IS A NOTE FROM 11-16-17. Patient feels some better but weight up 10 pounds since admission - getting IVF hydration. She feels breathing is baseline. Objective - Exam Vitals and I&O: Vital Signs Temp 98.9 F 11/17/17 06:00 Pulse 74 11/17/17 06:00 Resp 22 11/17/17 06:00 BP 113/69 11/17/17 06:00 Pulse Ox 93 11/17/17 06:00 Intake & Output 11/16/17 11/16/17 11/17/17 11:59 23:59 11:59 Intake Total 1100 360 240 Balance 1100 360 240 Weight 101.605 kg 101.605 kg Intake: IV 1000 Right Antecubital 1000 Oral 100 360 240 Other: Voiding Method Bedside Commode Bedside Commode Bedside Commode # Voids 2 2 # Bowel Movements 0 General: Alert, Oriented to Person, Oriented to Place, Cooperative, Mild distress. No: Oriented to Time Lungs: Rhonchi Cardiovascular: Regular rate - Results Results: Laboratory Results WBC 8.10 K/ul (4.00-12.00) 11/16/17 07:05 RBC 3.63 M/ul (3.90-5.20) L 11/16/17 07:05 Hgb 11.7 g/dL (12.0-16.0) L 11/16/17 07:05 Hct 36.2 % (34.5-46.5) 11/16/17 07:05 MCV 99.9 fl (80.0-100.0) 11/16/17 07:05 MCH 32.3 pg (28.0-34.0) 11/16/17 07:05 MCHC 32.3 g/dL (30.0-36.0) 11/16/17 07:05 RDW 13.8 % (11.3-14.3) 11/16/17 07:05 Plt Count 290 K/mm3 (130-400) 11/16/17 07:05 Neut % (Auto) 65.9 % (39.0-79.0) 11/14/17 Unknown Lymph % (Auto) 18.7 % (16.0-50.0) 11/14/17 Unknown [place] % (Auto) 6.0 % (0.0-11.0) 11/14/17 Unknown Eos % (Auto) 6.9 % (0.0-6.8) H 11/14/17 Unknown Baso % (Auto) 0.9 (0.0-1.5) 11/14/17 Unknown Neut # (Auto) 4.7 # k/uL (1.4-7.7) 11/14/17 Unknown Lymph # (Auto) 1.3 # k/uL (0.6-4.0) 11/14/17 Unknown [place] # (Auto) 0.4 # k/uL (0.0-0.9) 11/14/17 Unknown Eos # (Auto) 0.5 # k/uL (0.0-0.6) 11/14/17 Unknown Baso # (Auto) 0.1 # k/uL (0.0-0.5) 11/14/17 Unknown Reactive Lymphs % 1.5 % (0.0-5.0) 11/14/17 Unknown Reactive Lymphs # 0.1 # k/uL (0.0-0.8) 11/14/17 Unknown PT 21.6 Seconds (9.4-11.6) H 11/16/17 07:05 INR 2.05 (0.9-1.2) H 11/16/17 07:05 Sodium 142 mmol/L (136-145) 11/16/17 07:05 Potassium 4.2 mmol/L (3.5-5.1) 11/16/17 07:05 Chloride 112 mmol/L (98-107) H 11/16/17 07:05 Carbon Dioxide 24 mmol/L (22-30) 11/16/17 07:05 BUN 23 mg/dL (7-17) H 11/16/17 07:05 Creatinine 1.20 mg/dL (0.52-1.04) H 11/16/17 07:05 Estimated Creat Clear 64 11/16/17 07:05 Est GFR ( Amer) > 60 (60-) 11/16/17 07:05 Est GFR (Non-Af Amer) > 60 (60-) 11/16/17 07:05 Glucose 74 mg/dL (74-106) 11/16/17 07:05 Calcium 9.1 mg/dL (8.4-10.2) 11/16/17 07:05 Total Bilirubin 0.3 mg/dL (0.2-1.3) 11/15/17 06:00 AST 17 U/L (15-46) 11/15/17 06:00 ALT 22 U/L (13-69) 11/15/17 06:00 Alkaline Phosphatase 53 U/L (38-126) 11/15/17 06:00 NT-Pro-B Natriuret Pep 1659.5 pg/mL (15.0-450.0) H 11/14/17 Unknown Total Protein 6.6 g/dL (6.3-8.2) 11/15/17 06:00 Albumin 3.6 g/dL (3.5-5.0) 11/15/17 06:00 Urine Color Yellow (YELLOW) 11/14/17 12:45 Urine Appearance Clear (CLEAR) 11/14/17 12:45 Urine pH 5.5 (5.0 - 8.0) 11/14/17 12:45 Ur Specific [place] 1.025 (1.010-1.030) 11/14/17 12:45 Urine Protein Negative mg/dL (NEGATIVE) 11/14/17 12:45 Urine Ketones Trace mg/dL (NEGATIVE) H 11/14/17 12:45 Urine Occult Blood Trace-intact (NEGATIVE) H 11/14/17 12:45 Urine Nitrite Positive (NEGATIVE) H 11/14/17 12:45 Urine Bilirubin Negative (NEGATIVE) 11/14/17 12:45 Urine Urobilinogen 0.2 Eu (0.2-1.0) 11/14/17 12:45 Ur Leukocyte Esterase 1+ (NEGATIVE) H 11/14/17 12:45 Urine Glucose Negative mg/dL (NEGATIVE) 11/14/17 12:45 Assessment/Plan - Assessment/Plan (1) Diabetes type 2, controlled Status: Acute Qualifiers: Diabetes mellitus longwall machine operator helper insulin use: with longwall machine operator helper use Diabetes mellitus complication status: without complication Qualified Code(s): E11.9 - Type 2 diabetes mellitus without complications; Z79.4 - MCFP (current) use of insulin; Z79.4 - MCFP (current) use of insulin; Z79.4 - termite helper ( current) use of insulin; Z79.4 - termite helper (current) use of insulin (2) Nausea & vomiting Status: Acute Qualifiers: Vomiting type: unspecified Vomiting Intractability: non-intractable Qualified Code(s): R11.2 - Nausea with vomiting, unspecified (3) UTI (urinary tract infection) Status: Acute Qualifiers: Urinary tract infection type: site unspecified Hematuria presence: without hematuria Qualified Code(s): N39.0 - Urinary tract infection, site not specified Plan: Await urine culture results today. Concern over fluid overload. Will SLIV and give lasix 20 mg IV> (4) A-fib Status: Chronic Qualifiers: Atrial fibrillation type: chronic Qualified Code(s): I48.2 - Chronic atrial fibrillation Plan: HR has been stable since admission.
[2017-11-17] MEDS: LOSARTAN POTASSIUM 50 MG TABLET PO SCH (08:22)
[2017-11-17] MEDS: METOPROLOL TARTRATE 50 MG TABLET PO SCH (08:23)
[2017-11-17] MEDS: CHOLECALCIFEROL (VIT D3) 1,000 UNIT TABLET PO SCH (08:23)
[2017-11-17] MEDS: VENLAFAXINE HCL 37.5 MG CAP.ER.24H PO SCH (08:25)
[2017-11-17] MEDS: INSULIN NPH/REG 100 UNIT/ML 3ML VIAL SQ SCH (08:27)
[2017-11-17 10:14] VITALS: BP 128/64
== END 2017-11-17 09:54 | disposition home or self-care (01) | DRG 690 ==
LOC: ED 09:59 → SOUTH 12:28
PROVIDERS: ADMIT Family Medicine; ATTEND Family Medicine
DX: N39.0 Urinary tract infection, site not specified (principal); E86.0 Dehydration; I48.2 Chronic atrial fibrillation; F03.90 Unspecified dementia, unspecified severity, without behavioral disturbance, psychotic disturbance, mood disturbance, and anxiety
CPT/HCPCS: 71045; 80048; 80053; 81002; 83880; 85025; 85027; 85610; 87086; 87186; 93005; J0696; J1940; J2405; J7030; 96360; 96361; 96365; 96375; 99222; 99232; 99238; S1016

== ENCOUNTER 2017-11-19 13:47 | Outpatient (CLI) | payer OTHER | END 2017-11-19 13:50 | LOC: LAB 13:47 | PROVIDERS: ATTEND Family Medicine | DX: Z51.81 Encounter for therapeutic drug level monitoring (principal) | CPT/HCPCS: 36415; 85610 ==

== ENCOUNTER 2018-02-25 16:15 | Outpatient (CLI) | payer OTHER | END 2018-02-25 16:18 | LOC: LAB 16:15 | PROVIDERS: ATTEND Family Medicine | DX: Z51.81 Encounter for therapeutic drug level monitoring (principal) | CPT/HCPCS: 36415; 85610 ==

== ENCOUNTER 2018-02-26 15:51 | Outpatient (CLI) | payer OTHER | END 2018-02-26 15:56 | disposition home or self-care (01) | LOC: LABRHC 15:51 | PROVIDERS: ATTEND Physician Assistant | DX: R30.0 Dysuria (principal) | CPT/HCPCS: 87086; 87186 ==

== ENCOUNTER 2018-03-12 16:37 | Outpatient (CLI) | payer OTHER ==
[2018-03-12 16:57] LABS: eGFR (Non-African) 38
== END 2018-03-12 16:40 ==
LOC: LABRHC 16:37
PROVIDERS: ATTEND Family Medicine
DX: E11.9 Type 2 diabetes mellitus without complications (principal); R30.0 Dysuria; B96.4 Proteus (mirabilis) (morganii) as the cause of diseases classified elsewhere; Z16.24 Resistance to multiple antibiotics; Z51.81 Encounter for therapeutic drug level monitoring
CPT/HCPCS: 36415; 80053; 83036; 85610; 87086; 87186

== ENCOUNTER 2018-03-20 15:56 | Outpatient (CLI) | payer OTHER | END 2018-03-20 16:05 | LOC: LAB 15:56 | PROVIDERS: ATTEND Family Medicine | DX: Z51.81 Encounter for therapeutic drug level monitoring (principal) | CPT/HCPCS: 36415; 85610 ==

== ENCOUNTER 2018-04-29 14:05 | Outpatient (CLI) | payer OTHER ==
[2018-04-29 15:11] LABS: eGFR (Non-African) 28
== END 2018-04-29 14:07 ==
LOC: LAB 14:05
PROVIDERS: ATTEND Family Medicine
DX: Z51.81 Encounter for therapeutic drug level monitoring (principal)
CPT/HCPCS: 36415; 80048; 85610

== ENCOUNTER 2018-05-25 10:45 | Outpatient (CLI) | payer OTHER ==
[2018-06-01 08:53] LABS: COLOR,URINE SEE SCANNING (YELLOW)
== END 2018-05-25 10:46 ==
LOC: LAB 10:45
PROVIDERS: ATTEND Family Medicine
DX: R30.0 Dysuria (principal)
CPT/HCPCS: 81002; 87086

== ENCOUNTER 2018-06-23 14:15 | Outpatient (CLI) | payer OTHER | END 2018-06-23 14:16 | LOC: LAB 14:15 | PROVIDERS: ATTEND Family Medicine | DX: Z51.81 Encounter for therapeutic drug level monitoring (principal) | CPT/HCPCS: 36415; 85610 ==

== ENCOUNTER 2018-09-08 13:00 | Outpatient (CLI) | payer OTHER | END 2018-09-08 13:03 | LOC: LABRHC 13:00 | PROVIDERS: ATTEND Nurse Practitioner Family | DX: N39.0 Urinary tract infection, site not specified (principal) | CPT/HCPCS: 87086 ==

== ENCOUNTER 2018-09-22 14:10 | Outpatient (CLI) | payer OTHER | END 2018-09-22 14:15 | disposition home or self-care (01) | LOC: LAB 14:10 | PROVIDERS: ATTEND Family Medicine | DX: R30.0 Dysuria (principal); B96.20 Unspecified Escherichia coli [E. coli] as the cause of diseases classified elsewhere; Z16.24 Resistance to multiple antibiotics | CPT/HCPCS: 87086 ==

== ENCOUNTER 2018-10-30 14:29 | Emergency (ER) | payer OTHER ==
--- NOTE | 2018-10-30 14:48 | ED Physician Documentation ---
General Adult - HISTORIAN Historian: patient - HPI Stated Complaint: dysuria Chief Complaint: General Adult Onset: days ago Timing: still present Severity: moderate Further Comments: yes (Pt is an 88 yo female with c/o dysuria. Pt has had some retention and R sided back pain.) - ROS CONST: weakness EYES/ENT: none CVS/RESP: none GI/: problems urinating MS/SKIN/LYMPH: none - PAST HX Past History: other (afib, DM) Allergies/Adverse Reactions: Allergies Allergy/AdvReac Type Severity Reaction Status Date / Time No Known Drug Allergies Allergy Verified 10/30/18 15:08 Home Medications: Ambulatory Orders Medication Instructions Recorded Cefixime [Suprax] 400 mg PO DAILY #14 capsule 10/30/18 - SOCIAL HX Smoking History: non-smoker - FAMILY HX Family History: No - VITAL SIGNS Vital Signs: Vital Signs Temp Pulse Resp BP Pulse Ox 128/64 11/17/17 10:00 - REVIEWED ASSESSMENTS Nursing Assessment Reviewed: Yes Vitals Reviewed: Yes Progress - Progress Progress: Rx Ciprofloxacin 500 mg po bid x 10 days. Follow up with primary provider in 4 or 5 days for check of you pt-inr. General Adult Physical Exam - PHYSICAL EXAM GENERAL APPEARANCE: moderate distress EENT: pharynx normal NECK: normal inspection, supple RESPIRATORY: no resp distress, chest non-tender, breath sounds normal CVS: irregularly irregular rhy ABDOMEN: soft, normal bowel sounds BACK: CVA tenderness (R) SKIN: warm/dry, normal color EXTREMITIES: non-tender, normal range of motion, no evidence of injury NEURO: oriented X3, motor nml, sensation nml Discharge Clincal Impression: Pyelonephritis Prescriptions: Cefixime [Suprax] 400 mg PO DAILY #14 capsule Referrals: Keri Sosa MD [Primary Care Provider] - Condition: Stable Disposition: 01 HOME, SELF-CARE Decision to Admit: NO Decision Time: 17:08
[2018-10-30] MEDS ORDERED: 0.9 % SODIUM CHLORIDE 1,000 ML IV ONE (14:54)
[2018-10-30] MEDS ORDERED: cefTRIAXone SODIUM 1 GM in 0.9 % SODIUM CHLORIDE 50 ML IV ONE (15:41)
[2018-10-30 15:54] LABS: APPEARANCE,URINE CLEAR (CLEAR); COLOR,URINE YELLOW (YELLOW)
[2018-10-30 15:55] LABS: OCCULT BLOOD,URINE 3+ (NEGATIVE)
[2018-10-30 16:38] LABS: SEGMENTED NEUTROPHILS % 62 % (39-79)
[2018-10-30 17:49] VITALS: BP 126/80
== END 2018-10-30 17:25 | disposition home or self-care (01) ==
LOC: ED 14:29
DX: N12 Tubulo-interstitial nephritis, not specified as acute or chronic (principal)
CPT/HCPCS: 80053; 81002; 85025; 87040; 87086; 87186; 96361; 96365; 99284; J0696; J7030; S1016

== ENCOUNTER 2019-02-09 15:05 | Outpatient (CLI) | payer OTHER ==
[2019-02-09 16:48] LABS: eGFR (Non-African) 26
[2019-02-09 17:04] LABS: A1C 7.7 % (<5.7)
== END 2019-02-09 15:10 ==
LOC: LABRHC 15:05
PROVIDERS: ATTEND Family Medicine
DX: E03.9 Hypothyroidism, unspecified (principal); E11.9 Type 2 diabetes mellitus without complications
CPT/HCPCS: 36415; 80053; 83036; 84443; 85610